=== PATIENT | female | born 1970 | race Hispanic/Latino ===

== ENCOUNTER 2020-02-11 13:11 | Emergency (ER) | payer OTHER ==
[~2020-02-11] VITALS: Ht 160 cm; Wt 68.0 kg
[~2020-02-11 13:11] MED LIST: ALIGN4 MG PO; CARAFATE1 GM/10 ML PO; MIRALAX17 GM PO
[2020-02-11] MEDS ORDERED: DEXAMETHASONE SOD PHOS 10 MG/1 ML VIAL IM ONE (14:45)
[2020-02-11] MEDS ORDERED: CEFTRIAXONE SOD 1 GM VIAL IM ONE (14:45)
[2020-02-11] MEDS ORDERED: ACETAMINOPHEN/CODEINE ELIX 120-12 MG/5 ML UDC PO ONE (14:45)
[2020-02-11] MEDS ORDERED: ASPIRIN 81 MG CHEW TAB PO ONE (14:45)
[2020-02-11 15:10] LABS: BASOPHILS % 0.2 % (0.0-1.0); HEMATOCRIT 44.9 % (34.2-44.1); HEMOGLOBIN 14.7 g/dL (12.0-16.0); LYMPHOCYTES # (AUTO) 1.1 (1.0-3.2); LYMPHOCYTES % 16.7 % (18.0-39.1); MEAN CORPUSCULAR HEMOGLOBIN 29.6 pg (28-32); MEAN CORPUSCULAR HGB CONC 32.7 g/dL (31-35); MEAN CORPUSCULAR VOLUME 90.5 fL (81-99); MONOCYTES # (AUTO) 0.4 (0.2-0.8); MONOCYTES % 6.6 % (4.4-11.3); NEUTROPHILS # (AUTO) 4.9 (2.1-6.9); NEUTROPHILS % 76.2 % (38.7-80.0); PLATELET COUNT 297 x10e3/uL (140-360); RED BLOOD COUNT 4.96 x10e6/uL (3.6-5.1); RED CELL DISTRIBUTION WIDTH 12.6 % (11.7-14.4)
[2020-02-11 15:19] LABS: INR 0.88; PROTHROMBIN TIME 12.5 seconds (11.9-14.5)
[2020-02-11 15:20] LABS: PARTIAL THROMBOPLASTIN TIME 32.2 seconds (23.8-35.5)
[2020-02-11 15:24] LABS: STREPTOCOCCUS GRP A ANTIGEN NEGATIVE (NEGATIVE)
[2020-02-11 15:27] LABS: ALANINE AMINOTRANSFERASE 26 IU/L (0-55); ALBUMIN 4.1 g/dL (3.5-5.0); ALBUMIN/GLOBULIN RATIO 0.9 (0.8-2.0); ALKALINE PHOSPHATASE 90 IU/L (40-150); ANION GAP 14.4 mmol/L (8-16); BLOOD UREA NITROGEN 7 mg/dL (7-26); BUN/CREATININE RATIO 9 (6-25); CALCIUM 9.3 mg/dL (8.4-10.2); CARBON DIOXIDE 23 mmol/L (22-29); CHLORIDE 108 mmol/L (98-107); CREATINE KINASE 39 IU/L (29-168); CREATININE, SERUM 0.74 mg/dL (0.57-1.11); EST GLOMERULAR FILTRATION RATE > 60 ML/MIN (60-); GLUCOSE 91 mg/dL (74-118); POTASSIUM 3.4 mmol/L (3.5-5.1); SODIUM 142 mmol/L (136-145)
[2020-02-11 15:35] LABS: INFLUENZAE A&B ANTIGEN (RAPID) POSITIVE FLU A (NEGATIVE)
--- NOTE | 2020-02-11 16:56 | Diagnostic Imaging Report ---
EXAMINATION: CHEST SINGLE (PORTABLE) INDICATION: ^ERMD ORDER ^[id number] ^1530 ^Y COMPARISON: None FINDINGS: AP view TUBES and LINES: None. LUNGS: Lungs are well inflated. Nonspecific bilateral hilar reticular opacity with peribronchial wall thickening and few tiny dense nodules in the upper lobes. This may reflect sequela of prior granulomatous disease. No lobar consolidations. PLEURA: No pleural effusion or pneumothorax. HEART AND MEDIASTINUM: The cardiomediastinal silhouette is unremarkable.. BONES AND SOFT TISSUES: No acute osseous lesion. Soft tissues are unremarkable. UPPER ABDOMEN: No free air under the diaphragm. IMPRESSION: Nonspecific bilateral hilar peribronchial wall thickening and reticular opacities may reflect bronchitis or viral infection. Signed by: Dr. Viola Pena M.D. on 02/11/2020 4:52 PM
--- NOTE | 2020-02-11 17:06 | Emergency Department Note ---
History of Present Illnes History of Present Illness Chief Complaint: COVID PUI History of Present Illness This is a 49 year old female c/o sob Chief Complaint Comment 49 y/o female presents to ED via EMS for initial ems call out of sob, but reported to ems she choked on a pill, per ems she was lying on the floor showing signs of anxiety, once reassured by EMS she calmed down. Pt initially told EMS she was tested for COVID and was positive, once EMS started asking more question, pt denied being tested. Pt and her spouse then wanted to both come to ED to be tested for COVID. Upon arrival pt in no acute distress. Sats 100% on RA. Temp 99.3, no signs of distress. Historian: Patient, Can Cleaner/EMS Arrival Mode: [place] Onset (how long ago): day(s) (1) Radiation: Denies non-radiation, Denies back, Denies neck, Denies extremity, Denies abdomen, Denies periumbilical, Denies flank, Denies proximal, Denies distal, Denies other Severity: moderate Onset quality: sudden Duration (how long): day(s) (1) Timing of current episode: constant Progression: worsening Context: Denies recent illness, Denies recent surgery, Denies recent immobilization, Denies recent travel, Denies trauma/injury, Denies new medications, Denies hx of DVT/PE, Denies non-compliance w/ medications, Denies other Relieving factors: none Exacerbating factors: none Associated symptoms: Reports cough (slight), Reports shortness of breath; Denies denies other symptoms, Denies confusion, Denies chest pain, Denies diaphoresis, Denies fever/chills, Denies headaches, Denies loss of appetite, Denies malaise, Denies nausea/vomiting, Denies rash, Denies seizure, Denies syncope, Denies weakness, Denies other Treatments prior to arrival: none (LEIDY ANDREW) Past Medical/Family History Physician Review I have reviewed the patient's past medical and family history. Any updates have been documented here. (LEIDY ANDREW) Past Medical History Recent Fever: No Clinical Suspicion of Infectio: No New/Unexplained Change in Ment: No Other Medical History: RHEUMATOID ARTHRITIS GASTRITIS HIATAL HERNIA Past Surgical History: None (LEIDY ANDREW) Social History Physically hurt or threatened: No (LEIDY ANDREW) Review of Systems Review of Systems Constitutional: Reports no symptoms EENTM: Reports no symptoms Cardiovascular: Reports no symptoms Respiratory: Reports cough, Reports dyspnea Gastrointestinal: Reports no symptoms Genitourinary: Reports no symptoms Musculoskeletal: Reports no symptoms Integumentary: Reports no symptoms Neurological: Reports no symptoms Psychological: Reports no symptoms Endocrine: Reports no symptoms Hematological/Lymphatic: Reports no symptoms (LEIDY ANDREW) Physical Exam Related Data Allergies: Coded Allergies: No Known Allergies (Unverified , 07/17/15) Triage Vital Signs Vital Signs Date Time Temp Pulse Resp B/P (MAP) Pulse Ox O2 Delivery O2 Flow Rate FiO2 02/11/20 13:28 99.3 70 16 135/72 100 Room Air Vital signs reviewed: Yes (LEIDY ANDREW) Physical Exam CONSTITUTIONAL Constitutional: Present well-developed, Present well-nourished HENT HENT: Present normocephalic, Present atraumatic, Present oropharynx cl ear/moist, Present nose normal HENT L/R: Present left ext ear normal, Present right ext ear normal EYES Eyes: Reports PERRL, Reports conjunctivae normal NECK Neck: Present ROM normal PULMONARY Pulmonary: Present effort normal, Present breath sounds normal, Present other (c/o slight cough and feeling sob ); Absent respiratory distress, Absent rales, Absent rhonchi, Absent chest tenderness CARDIOVASCULAR Cardiovascular: Present regular rhythm, Present heart sounds normal, Present capillary refill normal, Present normal rate GASTROINTESTINAL Abdominal: Present soft, Present nontender, Present bowel sounds normal GENITOURINARY Genitourinary: Present exam deferred SKIN Skin: Present warm, Present dry MUSCULOSKELETAL Musculoskeletal: Present ROM normal NEUROLOGICAL Neurological: Present alert, Present oriented x 3, Present no gross motor or sensory deficits PSYCHOLOGICAL Psychological: Present mood/affect normal, Present judgement normal (LEIDY ANDREW) Results Laboratory Result Diagram: 02/11/20 1443 02/11/20 1443 Laboratory Laboratory Tests Test 02/11/20 14:43 White Blood Count 6.39 x10e3/uL (4.8-10.8) Red Blood Count 4.96 x10e6/uL (3.6-5.1) Hemoglobin 14.7 g/dL (12.0-16.0) Hematocrit 44.9 % (34.2-44.1) Mean Corpuscular Volume 90.5 fL (81-99) Mean Corpuscular Hemoglobin 29.6 pg (28-32) Mean Corpuscular Hemoglobin Concent 32.7 g/dL (31-35) Red Cell Distribution Width 12.6 % (11.7-14.4) Platelet Count 297 x10e3/uL (140-360) Neutrophils (%) (Auto) 76.2 % (38.7-80.0) Lymphocytes (%) (Auto) 16.7 % (18.0-39.1) Monocytes (%) (Auto) 6.6 % (4.4-11.3) Eosinophils (%) (Auto) 0.0 % (0.0-6.0) Basophils (%) (Auto) 0.2 % (0.0-1.0) Neutrophils # (Auto) 4.9 (2.1-6.9) Lymphocytes # (Auto) 1.1 (1.0-3.2) Monocytes # (Auto) 0.4 (0.2-0.8) Eosinophils # (Auto) 0.0 (0.0-0.4) Basophils # (Auto) 0.0 (0.0-0.1) Absolute Immature Granulocyte (auto 0.02 x10e3/uL (0-0.1) Prothrombin Time 12.5 seconds (11.9-14.5) Prothromb Time International Ratio 0.88 Activated Partial Thromboplast Time 32.2 seconds (23.8-35.5) D-Dimer Quantitative (PE/DVT) 0.62 ug/mLFEU (0.00-0.45) Sodium Level 142 mmol/L (136-145) Potassium Level 3.4 mmol/L (3.5-5.1) Chloride Level 108 mmol/L (98-107) Carbon Dioxide Level 23 mmol/L (22-29) Anion Gap 14.4 mmol/L (8-16) Blood Urea Nitrogen 7 mg/dL (7-26) Creatinine 0.74 mg/dL (0.57-1.11) Estimat Glomerular Filtration Rate > 60 ML/MIN (60-) BUN/Creatinine Ratio 9 (6-25) Glucose Level 91 mg/dL (74-118) Calcium Level 9.3 mg/dL (8.4-10.2) Total Bilirubin 0.4 mg/dL (0.2-1.2) Aspartate Amino Transf (AST/SGOT) 20 IU/L (5-34) Alanine Aminotransferase (ALT/SGPT) 26 IU/L (0-55) Alkaline Phosphatase 90 IU/L (40-150) Creatine Kinase 39 IU/L (29-168) Creatine Kinase MB 0.40 ng/mL (0-5.0) Troponin I 0.008 ng/mL (0-0.300) B-Type Natriuretic Peptide 12.9 pg/mL (0-100) Total Protein 8.5 g/dL (6.5-8.1) Albumin 4.1 g/dL (3.5-5.0) Globulin 4.4 g/dL (2.3-3.5) Albumin/Globulin Ratio 0.9 (0.8-2.0) Human Chorionic Gonadotropin, Quant < 1.20 mIU/mL (0-10) Influenza Virus Types A,B Antigen Positive flu a (NEGATIVE) Group A Streptococcus Screen Negative (NEGATIVE) Laboratory Tests Test 02/11/20 14:43 White Blood Count 6.39 x10e3/uL (4.8-10.8) Red Blood Count 4.96 x10e6/uL (3.6-5.1) Hemoglobin 14.7 g/dL (12.0-16.0) Hematocrit 44.9 % (34.2-44.1) Mean Corpuscular Volume 90.5 fL (81-99) Mean Corpuscular Hemoglobin 29.6 pg (28-32) Mean Corpuscular Hemoglobin Concent 32.7 g/dL (31-35) Red Cell Distribution Width 12.6 % (11.7-14.4) Platelet Count 297 x10e3/uL (140-360) Neutrophils (%) (Auto) 76.2 % (38.7-80.0) Lymphocytes (%) (Auto) 16.7 % (18.0-39.1) Monocytes (%) (Auto) 6.6 % (4.4-11.3) Eosinophils (%) (Auto) 0.0 % (0.0-6.0) Basophils (%) (Auto) 0.2 % (0.0-1.0) Neutrophils # (Auto) 4.9 (2.1-6.9) Lymphocytes # (Auto) 1.1 (1.0-3.2) Monocytes # (Auto) 0.4 (0.2-0.8) Eosinophils # (Auto) 0.0 (0.0-0.4) Basophils # (Auto) 0.0 (0.0-0.1) Absolute Immature Granulocyte (auto 0.02 x10e3/uL (0-0.1) Prothrombin Time 12.5 seconds (11.9-14.5) Prothromb Time International Ratio 0.88 Activated Partial Thromboplast Time 32.2 seconds (23.8-35.5) D-Dimer Quantitative (PE/DVT) 0.62 ug/mLFEU (0.00-0.45) Sodium Level 142 mmol/L (136-145) Potassium Level 3.4 mmol/L (3.5-5.1) Chloride Level 108 mmol/L (98-107) Carbon Dioxide Level 23 mmol/L (22-29) Anion Gap 14.4 mmol/L (8-16) Blood Urea Nitrogen 7 mg/dL (7-26) Creatinine 0.74 mg/dL (0.57-1.11) Estimat Glomerular Filtration Rate > 60 ML/MIN (60-) BUN/Creatinine Ratio 9 (6-25) Glucose Level 91 mg/dL (74-118) Calcium Level 9.3 mg/dL (8.4-10.2) Total Bilirubin 0.4 mg/dL (0.2-1.2) Aspartate Amino Transf (AST/SGOT) 20 IU/L (5-34) Alanine Aminotransferase (ALT/SGPT) 26 IU/L (0-55) Alkaline Phosphatase 90 IU/L (40-150) Creatine Kinase 39 IU/L (29-168) Creatine Kinase MB 0.40 ng/mL (0-5.0) Troponin I 0.008 ng/mL (0-0.300) B-Type Natriuretic Peptide 12.9 pg/mL (0-100) Total Protein 8.5 g/dL (6.5-8.1) Albumin 4.1 g/dL (3.5-5.0) Globulin 4.4 g/dL (2.3-3.5) Albumin/Globulin Ratio 0.9 (0.8-2.0) Influenza Virus Types A,B Antigen Positive flu a (NEGATIVE) Group A Streptococcus Screen Negative (NEGATIVE) Laboratory Tests Test 02/11/20 14:43 White Blood Count 6.39 x10e3/uL (4.8-10.8) Red Blood Count 4.96 x10e6/uL (3.6-5.1) Hemoglobin 14.7 g/dL (12.0-16.0) Hematocrit 44.9 % (34.2-44.1) Mean Corpuscular Volume 90.5 fL (81-99) Mean Corpuscular Hemoglobin 29.6 pg (28-32) Mean Corpuscular Hemoglobin Concent 32.7 g/dL (31-35) Red Cell Distribution Width 12.6 % (11.7-14.4) Platelet Count 297 x10e3/uL (140-360) Neutrophils (%) (Auto) 76.2 % (38.7-80.0) Lymphocytes (%) (Auto) 16.7 % (18.0-39.1) Monocytes (%) (Auto) 6.6 % (4.4-11.3) Eosinophils (%) (Auto) 0.0 % (0.0-6.0) Basophils (%) (Auto) 0.2 % (0.0-1.0) Neutrophils # (Auto) 4.9 (2.1-6.9) Lymphocytes # (Auto) 1.1 (1.0-3.2) Monocytes # (Auto) 0.4 (0.2-0.8) Eosinophils # (Auto) 0.0 (0.0-0.4) Basophils # (Auto) 0.0 (0.0-0.1) Absolute Immature Granulocyte (auto 0.02 x10e3/uL (0-0.1) Prothrombin Time 12.5 seconds (11.9-14.5) Prothromb Time International Ratio 0.88 Activated Partial Thromboplast Time 32.2 seconds (23.8-35.5) D-Dimer Quantitative (PE/DVT) 0.62 ug/mLFEU (0.00-0.45) Sodium Level 142 mmol/L (136-145) Potassium Level 3.4 mmol/L (3.5-5.1) Chloride Level 108 mmol/L (98-107) Carbon Dioxide Level 23 mmol/L (22-29) Anion Gap 14.4 mmol/L (8-16) Blood Urea Nitrogen 7 mg/dL (7-26) Creatinine 0.74 mg/dL (0.57-1.11) Estimat Glomerular Filtration Rate > 60 ML/MIN (60-) BUN/Creatinine Ratio 9 (6-25) Glucose Level 91 mg/dL (74-118) Calcium Level 9.3 mg/dL (8.4-10.2) Total Bilirubin 0.4 mg/dL (0.2-1.2) Aspartate Amino Transf (AST/SGOT) 20 IU/L (5-34) Alanine Aminotransferase (ALT/SGPT) 26 IU/L (0-55) Alkaline Phosphatase 90 IU/L (40-150) Creatine Kinase 39 IU/L (29-168) Creatine Kinase MB 0.40 ng/mL (0-5.0) Troponin I 0.008 ng/mL (0-0.300) B-Type Natriuretic Peptide 12.9 pg/mL (0-100) Total Protein 8.5 g/dL (6.5-8.1) Albumin 4.1 g/dL (3.5-5.0) Globulin 4.4 g/dL (2.3-3.5) Albumin/Globulin Ratio 0.9 (0.8-2.0) Influenza Virus Types A,B Antigen Positive flu a (NEGATIVE) Group A Streptococcus Screen Negative (NEGATIVE) Laboratory Tests Test 02/11/20 14:43 White Blood Count 6.39 x10e3/uL (4.8-10.8) Red Blood Count 4.96 x10e6/uL (3.6-5.1) Hemoglobin 14.7 g/dL (12.0-16.0) Hematocrit 44.9 % (34.2-44.1) Mean Corpuscular Volume 90.5 fL (81-99) Mean Corpuscular Hemoglobin 29.6 pg (28-32) Mean Corpuscular Hemoglobin Concent 32.7 g/dL (31-35) Red Cell Distribution Width 12.6 % (11.7-14.4) Platelet Count 297 x10e3/uL (140-360) Neutrophils (%) (Auto) 76.2 % (38.7-80.0) Lymphocytes (%) (Auto) 16.7 % (18.0-39.1) Monocytes (%) (Auto) 6.6 % (4.4-11.3) Eosinophils (%) (Auto) 0.0 % (0.0-6.0) Basophils (%) (Auto) 0.2 % (0.0-1.0) Neutrophils # (Auto) 4.9 (2.1-6.9) Lymphocytes # (Auto) 1.1 (1.0-3.2) Monocytes # (Auto) 0.4 (0.2-0.8) Eosinophils # (Auto) 0.0 (0.0-0.4) Basophils # (Auto) 0.0 (0.0-0.1) Absolute Immature Granulocyte (auto 0.02 x10e3/uL (0-0.1) Prothrombin Time 12.5 seconds (11.9-14.5) Prothromb Time International Ratio 0.88 Activated Partial Thromboplast Time 32.2 seconds (23.8-35.5) D-Dimer Quantitative (PE/DVT) 0.62 ug/mLFEU (0.00-0.45) Sodium Level 142 mmol/L (136-145) Potassium Level 3.4 mmol/L (3.5-5.1) Chloride Level 108 mmol/L (98-107) Carbon Dioxide Level 23 mmol/L (22-29) Anion Gap 14.4 mmol/L (8-16) Blood Urea Nitrogen 7 mg/dL (7-26) Creatinine 0.74 mg/dL (0.57-1.11) Estimat Glomerular Filtration Rate > 60 ML/MIN (60-) BUN/Creatinine Ratio 9 (6-25) Glucose Level 91 mg/dL (74-118) Calcium Level 9.3 mg/dL (8.4-10.2) Total Bilirubin 0.4 mg/dL (0.2-1.2) Aspartate Amino Transf (AST/SGOT) 20 IU/L (5-34) Alanine Aminotransferase (ALT/SGPT) 26 IU/L (0-55) Alkaline Phosphatase 90 IU/L (40-150) Creatine Kinase 39 IU/L (29-168) Creatine Kinase MB 0.40 ng/mL (0-5.0) Troponin I 0.008 ng/mL (0-0.300) B-Type Natriuretic Peptide 12.9 pg/mL (0-100) Total Protein 8.5 g/dL (6.5-8.1) Albumin 4.1 g/dL (3.5-5.0) Globulin 4.4 g/dL (2.3-3.5) Albumin/Globulin Ratio 0.9 (0.8-2.0) Influenza Virus Types A,B Antigen Positive flu a (NEGATIVE) Group A Streptococcus Screen Negative (NEGATIVE) Lab results reviewed: Yes (LEIDY ANDREW) Imaging Impressions Procedure: DX/CHEST SINGLE (PORTABLE) Exam Date: 02/11/20 Exam Time: 1529 REPORT STATUS: Signed EXAMINATION: CHEST SINGLE (PORTABLE) INDICATION: ^ERMD ORDER ^[id number] ^1530 ^Y COMPARISON: None FINDINGS: AP view TUBES and LINES: None. LUNGS: Lungs are well inflated. Nonspecific bilateral hilar reticular opacity with peribronchial wall thickening and few tiny dense nodules in the upper lobes. This may reflect sequela of prior granulomatous disease. No lobar consolidations. PLEURA: No pleural effusion or pneumothorax. HEART AND MEDIASTINUM: The cardiomediastinal silhouette is unremarkable.. BONES AND SOFT TISSUES: No acute osseous lesion. Soft tissues are unremarkable. UPPER ABDOMEN: No free air under the diaphragm. IMPRESSION: Nonspecific bilateral hilar peribronchial wall thickening and reticular opacities may reflect bronchitis or viral infection. Signed by: Dr. Jb Rodriguez M.D. on 02/11/2020 4:52 PM Dictated By: JB RODRIGUEZ MD 51 Transcribed By: JEREMY on 02/11/201651 COPY TO: LEIDY ANDREW~ (LEIDY ANDREW) Assessment & Plan Medical Decision Making MDM 49 year old female c/o sob anxious lab rad ekg ordered medicated w/ decadron / rocephin / tylenol w/ codiene (LEIDY ANDREW) MDM Signout obtained from Dr. Andrew to follow-up CT chest, CT chest reviewed. Patient's clinical presentation and CT chest CONSISTENT with COVID 19. PATIENT INFORMS SHE HAS A CORONAVIRUS AND TO QUARANTINE. PATIENT EXPRESSED UNDERSTANDI NG. PATIENT WITH NORMAL VITAL SIGNS AT TIME OF DISCHARGE. (CANDIDO DEXTER, ) Reassessment Reassessment ct chest pending care of pt turned over to Dr Dexter (LEIDY ANDREW) Assessment & Plan Final Impression: (1) Dyspnea (LEIDY ANDREW) Final Impression: (1) Dyspnea (2) COVID-19 (3) Flu (CANDIDO DEXTER DO) Depart Disposition: HOME, SELF-CARE Last Vital Signs Date Time Temp Pulse Resp B/P (MAP) Pulse Ox O2 Delivery O2 Flow Rate FiO2 02/11/20 14:27 98.5 71 18 147/93 99 02/11/20 13:28 Room Air (LEIDY ANDREW) Home Meds Reported Medications Bifidobacterium Infantis (ALIGN) 4 Mg Capsule, 1 EACH PO DAILY 07/18/15 Polyethylene Glycol 3350 (MIRALAX) 17 Gm Powd.pack, 1 EACH PO DAILY 07/18/15 Sucralfate (CARAFATE) 1 Gm/10 Ml Oral.susp, 1 GM PO QID, ML 07/18/15 Medications in the ED Aspirin 81 mg PRN ONCE PO ; Start 02/11/20 at 14:45; Stop 02/11/20 at 15:13; Status DC Ceftriaxone Sodium 1 gm ONCE ONCE IM ; Start 02/11/20 at 14:45; Stop 02/11/20 at 15:13; Status DC Dexamethasone Sodium Phosphate 10 mg ONCE ONCE IM ; Start 02/11/20 at 14:45; Stop 02/11/20 at 15:14; Status DC Acetaminophen/ Codeine Phosphate 10 ml ONCE ONCE PO ; Start 02/11/20 at 14:45; Stop 02/11/20 at 15:13; Status DC (LEIDY ANDREW) LEIDY ANDREW Feb 11, 2020 17:06 CANDIDO DEXTER DO Feb 11, 2020 23:27
[2020-02-11] MEDS ORDERED: SODIUM CHLORIDE 0.9% 50ML 50 ML ONE (20:14)
[2020-02-11] MEDS ORDERED: IOPAMIDOL 370 MG/ML 200 ML INFUS..BTL INJ ONE (20:14)
--- NOTE | 2020-02-11 21:27 | Diagnostic Imaging Report ---
EXAM: CT Chest WITH contrast 02/11/2020 7:00 PM INDICATION: Shortness of breath COMPARISON: None TECHNIQUE: Chest was scanned utilizing a multidetector helical scanner from the lung apex through the level of the adrenal glands without administration of IV contrast. Coronal and sagittal reformations were obtained. Routine protocol was performed. IV CONTRAST: 100 mL of Omnipaque 300 COMPLICATIONS: None RADIATION DOSE: Total DLP: 416 mGy*cm Estimated effective dose: (DLP x 0.014 x size factor) mSv CTDIvol has been reviewed. It is below the limits set by the Radiation Protocol Committee (RPC). Dose modulation, iterative reconstruction, and/or weight based adjustment of the mA/kV was utilized to reduce the radiation dose to as low as reasonably achievable. FINDINGS: LINES/ TUBES: None. LUNGS AND AIRWAYS: Focal left lower lobe groundglass opacities, largest 2.9 cm. Few additional small groundglass opacities of the right lower lobe. PLEURA: The pleural spaces are clear. HEART AND MEDIASTINUM: The thyroid gland is normal. No mediastinal, hilar or axillary lymphadenopathy. The heart is normal in size. There is no pericardial effusion. No pulmonary artery filling defect is identified. UPPER ABDOMEN: Unremarkable. BONES: The visualized bony thorax is within normal limits. SOFT TISSUES: Unremarkable. IMPRESSION: 1. No pulmonary embolus. 2. Left lower lobe predominant groundglass pulmonary airspace disease consistent with an infectious process. Consider coronal pneumonia. Signed by: Solo Stark MD on 02/11/2020 9:24 PM
== END 2020-02-11 23:33 | disposition home or self-care (01) ==
LOC: ER 15:01
DX: U07.1 COVID-19 (principal); J11.1 Influenza due to unidentified influenza virus with other respiratory manifestations; R06.00 Dyspnea, unspecified; R50.9 Fever, unspecified; M06.9 Rheumatoid arthritis, unspecified
CPT/HCPCS: 36415; 71045; 71260; 80053; 82550; 82553; 83518; 83880; 84484; 84702; 85025; 85379; 85610; 85730; 87070; 87400; 87635; 93005; 99284; Q9967

== ENCOUNTER 2020-11-22 15:56 | Emergency (ER) | payer OTHER ==
[~2020-11-22] VITALS: Ht 160 cm; Wt 68.0 kg
[~2020-11-22 15:56] MED LIST changes: +FLUOXETINE HCL20 MG PO; +PANTOPRAZOLE SO40 MG PO
[2020-11-22] MEDS ORDERED: KETOROLAC TROMETHAMINE 30 MG/ML VIAL IV STA (17:05)
[2020-11-22] MEDS ORDERED: KETOROLAC TROMETHAMINE 30 MG/ML VIAL ONE (17:45)
[2020-11-22] MEDS ORDERED: NAPROSYN500 MG PO (19:55)
== END 2020-11-22 20:09 | disposition home or self-care (01) ==
LOC: FSED 16:05
DX: R07.89 Other chest pain (principal); R06.02 Shortness of breath; F41.9 Anxiety disorder, unspecified
CPT/HCPCS: 71046; 80053; 81003; 82553; 84484; 85379; 93005; 99283; J1885

== ENCOUNTER 2022-04-10 23:51 | Emergency (ER) | payer OTHER ==
[~2022-04-10] VITALS: Ht 160 cm; Wt 68.0 kg
[~2022-04-10 23:51] MED LIST changes: +NAPROSYN500 MG PO
[2022-04-11] MEDS ORDERED: LORAZEPAM 0.5 MG TAB PO ONE (00:30)
[2022-04-11] MEDS ORDERED: DEXAMETHASONE SOD PHOS INJ 4 MG/ML SDV IM ONE (00:30)
[2022-04-11] MEDS ORDERED: CEPHALEXIN500 MG PO (00:31)
[2022-04-11] MEDS ORDERED: LORAZEPAM 0.5 MG TAB ONE (00:56)
[2022-04-11] MEDS ORDERED: DEXAMETHASONE SOD PHOS INJ 4 MG/ML SDV ONE (00:56)
== END 2022-04-11 01:15 | disposition home or self-care (01) ==
LOC: FSED 23:56
DX: J02.9 Acute pharyngitis, unspecified (principal); F41.9 Anxiety disorder, unspecified; M06.9 Rheumatoid arthritis, unspecified
CPT/HCPCS: 83518; 99283; J1100